=== PATIENT | female | born 1960 | race Caucasian/White ===

== ENCOUNTER → 2017-10-16 | Outpatient (CLI) | payer BC, OTHER ==
[~2017-10-16] MED LIST: ASPIR 8181 MG PO; BENTYL10 MG PO; CALCIUM600 MG PO; CITALOPRAM HBR40 MG PO; DELESTROGE10 MG/1 ML; DELESTROGEN; DEXILANT60 MG PO; FISH OIL; GABAPENTIN100 MG PO; GEMFIBROZIL600 MG PO; HUMALOG100 UNITS/ SC; HUMALOG100 UNITS/ SQ; INSULIN SQ; ISOSORBIDE MONO30 MG PO; LANTUS100 UNITS/ SQ; LEVEMIR100 UNIT/1 SC; LEVOXYL50 MCG PO; LOVENOX60 MG/0.6 SC; MAXIDE PO; METFORMIN HCL500 MG PO; METHOCARBAMOL750 MG PO; METOPROLOL SUCC50 MG PO; NABUMETONE500 MG PO; NIACIN; NOVOLOG SC; PLAVIX75 MG PO; PRAVASTATIN SOD40 MG PO; PROPAFENONE PO; TRAMADOL HCL E200 MG PO; TRAZODONE HCL100 MG PO; TRIAMTERENE-HCTZ1 EA PO; VERAPAMIL ER120 M1 PO
--- NOTE | 2017-10-16 11:16 | Diagnostic Imaging Report ---
PROCEDURE:X-RAY LEFT FOOT, COMPLETE COMPARISON:None. INDICATIONS:DIABETIC ULCER ON BOTTOM LATERAL PORTION FINDINGS: There are no fractures or dislocations. Erosive changes of the palmar aspect of the distal great toe, likely chronic without soft tissue defect or swelling. Calcaneal enthesophyte. Vascular calcifications. CONCLUSION: Erosive changes of the palmar aspect of the distal phalanx of the great toe, likely chronic without soft tissue defect or swelling. Recommend Foot MRI if there is high clinical concern for acute osteomyelitis. No fractures or dislocations. Dictated by: Julio César Marin M.D. on 10/16/2017 at 11:19 Electronically approved by: Julio César Marin M.D. on 10/16/2017 at 11:19
== END ==
LOC: RAD 10:25
PROVIDERS: ATTEND Family Medicine
DX: E11.621 Type 2 diabetes mellitus with foot ulcer (principal)

== ENCOUNTER → 2018-05-12 | Outpatient (CLI) | payer BC, OTHER ==
[2018-05-12 14:44] LABS: BODY FLUID APPEARANCE CLOUDY; BODY FLUID COLOR RED; BODY FLUID TYPE SYNOVIAL
[2018-05-12 14:45] LABS: RBC,BODY FLUID 46200 cells/uL; WBC,BODY FLUID 12320 cells/uL
[2018-05-12 14:48] LABS: LYMPHOCYTES,BODY FLUID 6 %; MONO/MACROPHG,BODY FLUID 10 %; NEUTROPHILS,BODY FLUID 84 %
== END ==
LOC: LAB 12:24
PROVIDERS: ATTEND Specialist
DX: M10.062 Idiopathic gout, left knee (principal)
CPT/HCPCS: 36415; 87070; 87071; 87075; 87102; 87116; 87205; 87206; 89051; 89060

== ENCOUNTER → 2018-05-25 | Outpatient (CLI) | payer BC, OTHER ==
--- NOTE | 2018-05-25 11:24 | Diagnostic Imaging Report ---
MRI BRAIN WO HISTORY: Vertebrobasilar syndrome COMPARISON: None. TECHNIQUE: Sagittal T2, axial T2, axial T1, axial T2/FLAIR, axial gradient echo (or susceptibility weighted), coronal T2/FLAIR, and axial diffusion weighted MR images of the brain were obtained without contrast. DISCUSSION: Scalp/bone marrow: Unremarkable. Brain sulci: Appropriate for patient's age. Ventricles: Normal in size and configuration. No hydrocephalus. Extra-axial spaces: No masses or fluid collections. Parenchyma: A few small T2/FLAIR hyperintense foci throughout the supratentorial white matter are likely chronic microvascular ischemic changes. Otherwise, no mass, hemorrhage, or acute vascular insults. Vessels: Normal flow voids in major arteries and veins. Sellar/Suprasellar region: No abnormalities. Craniocervical junction: No abnormalities. Incidental findings: Mild scattered paranasal sinus mucosal thickening is present. IMPRESSION: 1. No acute intracranial abnormalities. 2. Mild supratentorial chronic microvascular ischemic changes. Signed by: Dr. Robert Sutton M.D. on 05/25/2018 11:21 AM
--- NOTE | 2018-05-25 11:37 | Diagnostic Imaging Report ---
MRA NECK WO, MRA HEAD WO HISTORY: Vertebrobasilar artery syndrome COMPARISON: Concurrent MRI of the brain TECHNIQUE: Axial 2D cervical, and axial 3D intracranial djuz-hw-ckikzr MRA images were obtained without contrast. Maximum intensity projection and coronal/sagittal reformatted images were created. If present, any cervical carotid stenosis will be measured as a percentage relative to the [place] artery distal to the stenosis. Intracranial MRA source axial images and MIPS were reviewed on [employer] system. FINDINGS: CERVICAL MRA: Noise and alias artifacts obscure some details. Right Carotid: No flow abnormalities. Left Carotid: No flow abnormalities. Right vertebral artery: No flow abnormalities. Left vertebral artery: No flow abnormalities. INTRACRANIAL MRA: Carotid arteries: No flow abnormalities in the intracranial internal carotid arteries. Normal A1 and M1 segments. Vertebrobasilar Circulation: Right vertebral artery: No flow abnormalities. Left vertebral artery: No flow abnormalities. Basilar artery: No flow abnormalities. Posterior cerebral arteries: No flow abnormalities. Normal Variants: ACom: Visualized. PComs: Patent on the left. Not visualized on the right. Vertebral arteries: Right dominant. IMPRESSION: No cervical or intracranial MRA abnormalities. Signed by: Dr. Robert Sutton M.D. on 05/25/2018 11:34 AM
--- NOTE | 2018-05-25 11:37 | Diagnostic Imaging Report ---
MRA NECK WO, MRA HEAD WO HISTORY: Vertebrobasilar artery syndrome COMPARISON: Concurrent MRI of the brain TECHNIQUE: Axial 2D cervical, and axial 3D intracranial abjk-pt-bvqecr MRA images were obtained without contrast. Maximum intensity projection and coronal/sagittal reformatted images were created. If present, any cervical carotid stenosis will be measured as a percentage relative to the [place] artery distal to the stenosis. Intracranial MRA source axial images and MIPS were reviewed on [employer] system. FINDINGS: CERVICAL MRA: Noise and alias artifacts obscure some details. Right Carotid: No flow abnormalities. Left Carotid: No flow abnormalities. Right vertebral artery: No flow abnormalities. Left vertebral artery: No flow abnormalities. INTRACRANIAL MRA: Carotid arteries: No flow abnormalities in the intracranial internal carotid arteries. Normal A1 and M1 segments. Vertebrobasilar Circulation: Right vertebral artery: No flow abnormalities. Left vertebral artery: No flow abnormalities. Basilar artery: No flow abnormalities. Posterior cerebral arteries: No flow abnormalities. Normal Variants: ACom: Visualized. PComs: Patent on the left. Not visualized on the right. Vertebral arteries: Right dominant. IMPRESSION: No cervical or intracranial MRA abnormalities. Signed by: Dr. Robert Sutton M.D. on 05/25/2018 11:34 AM
== END ==
LOC: MRI 09:06
PROVIDERS: ATTEND Family Medicine
DX: G45.9 Transient cerebral ischemic attack, unspecified (principal); R47.01 Aphasia
CPT/HCPCS: 70544; 70547; 70551

== ENCOUNTER → 2018-07-08 | Outpatient (CLI) | payer BC, OTHER ==
--- NOTE | 2018-07-09 03:48 | Diagnostic Imaging Report ---
SP LUMBAR, COMPLETE MIN 4VW, COCCYX HISTORY: Fall, low back and coccyx pain. COMPARISON: None available. DISCUSSION: Some of the osseous structures are partially obscured by stool and bowel gas. There are five non-rib bearing lumbar vertebral bodies. The alignment of the spine is within normal limits. Angulated appearance of the coccyx. Otherwise, no displaced fracture or compression deformity is identified. Surgical clips in the right upper quadrant. Disc Spaces: Mild disc space narrowing at L5-S1. Facets: Mild facet arthrosis at L4-L5 and L5-S1. IMPRESSION: Angulated appearance of the coccyx. Of note, this is a site of anatomic variance and may be an variant or represent a fracture. Recommend correlation with focal point tenderness. Otherwise, no acute radiographic abnormality. Signed by: DR. Enrrique Myers MD on 07/09/2018 3:45 AM
== END ==
LOC: RAD 17:46
PROVIDERS: ATTEND Family Medicine
DX: S30.0XXA Contusion of lower back and pelvis, initial encounter (principal)
CPT/HCPCS: 72110; 72220

== ENCOUNTER → 2018-12-21 | Day surgery (SDC) | payer BC, OTHER ==
[2018-12-18 09:40] LABS: BASOPHILS # (AUTO) 0.1 (0.0-0.1); BASOPHILS % 0.6 % (0.0-1.0); EOSINOPHILS # (AUTO) 0.6 (0.0-0.4); EOSINOPHILS % 5.9 % (0.0-6.0); HEMATOCRIT 35.3 % (34.2-44.1); HEMOGLOBIN 11.3 g/dL (12.0-16.0); LYMPHOCYTES # (AUTO) 1.4 (1.0-3.2); LYMPHOCYTES % 15.4 % (18.0-39.1); MEAN CORPUSCULAR HEMOGLOBIN 27.8 pg (28-32); MEAN CORPUSCULAR VOLUME 86.9 fL (81-99); MONOCYTES # (AUTO) 0.5 (0.2-0.8); MONOCYTES % 5.4 % (4.4-11.3); NEUTROPHILS # (AUTO) 6.7 (2.1-6.9); NEUTROPHILS % 72.2 % (38.7-80.0); PLATELET COUNT 264 x10e3/uL (140-360); RED BLOOD COUNT 4.06 x10e6/uL (3.6-5.1); RED CELL DISTRIBUTION WIDTH 14.1 % (11.7-14.4)
[~2018-12-21] MED LIST changes: +ATORVASTATIN PO; +CITALOPRAM HBR20 MG PO; +HYOSCYAMINE 0.125 MG TAB ONE; +INSULIN REGULAR, HUMAN 100 UNIT/1 ML 3ML VIAL ONE; +ISOSORBIDE ER PO; +LIDOCAINE HCL 2% LOCAL INJ 5 ML SDV VIAL INJ ONE; +MIDAZOLAM HCL 2 MG/2 ML VIAL ONE; +NOVOLOG100 UNITS1 SC; +PENTASA500 MG PO; +PROPOFOL IV EMULSION 10 MG/ML 20 ML VIAL ONE; +PROPOFOL IV EMULSION 10 MG/ML 50 ML VIAL ONE; +PROTONIX PO
--- OUTSIDE RECORDS SUMMARY | 2018-12-21 09:55 | XMS REPORT ---
Author [facility] Organization [facility] Address Unknown Phone Unavailable Care Team Providers Care Supervisor [employer] Name Role Phone JAY HARRISON Unavailable Unavailable Problems This patient has no known problems. Allergies, Adverse Reactions, Alerts This patient has no known allergies or adverse reactions. Medications This patient has no known medications. Results Test Description Test Time Test Comments Text Results Atomic Results Result Comments COCCYX 2018-07-09 03:36:00 [facility] [address] [address] Patient Name: SUZETTE SANTIAGO MR #: [id number] : 1960 Age/Sex: 58/F Req #: [id number] [facility] Physician: Ordered by: JAY HARRISON MD Report #: [id number] Location: [facility] Room/Bed: Procedure: [id number] DX/COCCYX Exam Date: 07/08/18 Exam Time: 1806 REPORT STATUS: Signed SP LUMBAR, COMPLETE MIN 4VW, COCCYX HISTORY: Fall, low back and coccyx pain. COMPARISON: None available. DISCUSSION: Some of the osseous structures are partially obscured by stool and bowel gas. There are five non-rib bearing lumbar vertebral bodies. The alignment of the spine is within normal limits. Angulated appearance of the coccyx. Otherwise, no displaced fracture or compression deformity is identified. Surgical clips in the right upper quadrant. Disc Spaces: Mild disc space narrowing at L5- S1. Facets: Mild facet arthrosis at L4-L5 and L5-S1. IMPRESSION: Angulated appearance of the coccyx. Of note, this is a site of anatomic variance and may be an variant or represent a fracture. Recommend correlation with focal point tenderness. Otherwise, no acute radiographic abnormality. Signed by: DR. Enrrique Morgan MD on 07/09/2018 3:45 AM Dictated By: ENRRIQUE MORGAN MD 4 Transcribed By: HOA on 07/09/18344 COPY TO: JAY HARRISON MD SP LUMBAR, COMPLETE MIN 4VW 2018-07-09 03:36:00 [address] [place] [address] Patient Name: SUZETTE SANTIAGO MR #: [id number] : 1960 Age/Sex: 58/F Req #: [id number] Adm Physician: Ordered by: JAY HARRISON MD Report #: [id number] Location: [facility] Room/Bed: Procedure: [id number] DX/SP LUMBAR, COMPLETE MIN 4VW Exam Date: 07/08/18 Exam Time: 1806 REPORT STATUS: Signed SP LUMBAR, COMPLETE MIN 4VW, COCCYX HISTORY: Fall, low back and coccyx pain. COMPARISON: None available. DISCUSSION: Some of the osseous structures are partially obscured by stool and bowel gas. There are five non-rib bearing lumbar vertebral bodies. The alignment of the spine is within normal limits. Angulated appearance of the coccyx. Otherwise, no displaced fracture or compression deformity is identified. Surgical clips in the right upper quadrant. Disc Spaces: Mild disc space narrowing at L5-S1. Facets: Mild facet arthrosis at L4-L5 and L5-S1. IMPRESSION: Angulated appearance of the coccyx. Of note, this is a site of anatomic variance and may be an variant or represent a fracture. Recommend correlation with focal point tenderness. Otherwise, no acute radiographic abnormality. Signed by: DR. Enrrique Morgan MD on 07/09/2018 3:45 AM Dictated By: ENRRIQUE MORGAN MD 4 Transcribed By: HOA on 07/09/18344 COPY TO: JAY HARRISON MD MRA HEAD WO 2018-05-25 11:21:00 [place] [address] Patient Name: SUZETTE SANTIAGO MR #: [id number] : 1960 Age/Sex: 58/F Req #: [id number] Adm Physician: Ordered by: JAY HARRISON MD Report #: [id number] Location: MRI Room/Bed: Procedure: [id number] MRI/MRA HEAD WO Exam Date: Exam Time: REPORT STATUS: Signed MRA NECK WO, MRA HEAD WO HISTORY: Vertebrobasilar artery syndrome COMPARISON: Concurrent MRI of the brain TECHNIQUE: Axial 2D cervical, and axial 3D intracranial eofz-dt-etyfly MRA images were obtained without contrast. Maximum intensity projection and coronal/sagittal reformatted images were created. If present, any cervical carotid stenosis will be measured as a percentage relative to the [place] artery distal to the stenosis. Intracranial MRA source axial images and MIPS were reviewed on [employer] system. FINDINGS: CERVICAL MRA: Noise and alias artifacts obscure some details. Right Carotid: No flow abnormalities. Left Carotid: No flow abnormalities. Right vertebral artery: No flow abnormalities. Left vertebral artery: No flow abnormalities. INTRACRANIAL MRA: Carotid arteries: No flow abnormalities in the intracranial internal carotid arteries. Normal A1 and M1 segments. Vertebrobasilar Circulation: Right vertebral artery: No flow abnormalities. Left vertebral artery: No flow abnormalities. Basilar artery: No flow abnormalities. Posterior cerebral arteries: No flow abnormalities. Normal Variants: ACom: Visualized. PComs: Patent on the left. Not visualized on the right. Vertebral arteries: Right dominant. IMPRESSION: No cervical or intracranial MRA abnormalities. Signed by: Dr. Robert Sutton M.D. on 05/25/2018 11:34 AM Dictated By: ROBERT SUTTON MD 1134 Transcribed By: HOA on 05/25/18 1134 COPY TO: JAY HARRISON MD MRA NECK WO 2018-05-25 11:21:00 [place] [address] Patient Name: SUZETTE SANTIAGO MR #: [id number] : 1960 Age/Sex: 58/F Req #: [id number] Adm Physician: Ordered by: JAY HARRISON MD Report #: [id number] Location: MRI Room/Bed: Procedure: [id number] MRI/MRA NECK WO Exam Date: Exam Time: REPORT STATUS: Signed MRA NECK WO, MRA HEAD WO HISTORY: Vertebrobasilar artery syndrome COMPARISON: Concurrent MRI of the brain TECHNIQUE: Axial 2D cervical, and axial 3D intracranial emxf-tr-zwvqdy MRA images were obtained without contrast. Maximum intensity projection and coronal/sagittal reformatted images were created. If present, any cervical carotid stenosis will be measured as a percentage relative to the [place] artery distal to the stenosis. Intracranial MRA source axial images and MIPS were reviewed on [employer] system. FINDINGS: CERVICAL MRA: Noise and alias artifacts obscure some details. Right Carotid: No flow abnormalities. Left Carotid: No flow abnormalities. Right vertebral artery: No flow abnormalities. Left vertebral artery: No flow abnormalities. INTRACRANIAL MRA: Carotid arteries: No flow abnormalities in the intracranial internal carotid arteries. Normal A1 and M1 segments. Vertebrobasilar Circulation: Right vertebral artery: No flow abnormalities. Left vertebral artery: No flow abnormalities. Basilar artery: No flow abnormalities. Posterior cerebral arteries: No flow abnormalities. Normal Variants: ACom: Visualized. PComs: Patent on the left. Not visualized on the right. Vertebral arteries: Right dominant. IMPRESSION: No cervical or intracranial MRA abnormalities. Signed by: Dr. Robert Sutton M.D. on 05/25/2018 11:34 AM Dictated By: ROBERT SUTTON MD 1134 Transcribed By: HOA on 05/25/18 1134 COPY TO: JAY HARRISON MD MRI BRAIN WO 2018-05-25 11:17:00 [place] [address] Patient Name: SUZETTE SANTIAGO MR #: [id number] : 1960 Age/Sex: 58/F Req #: [id number] Adm Physician: Ordered by: JAY HARRISON MD Report #: [id number] Location: MRI Room/Bed: Procedure: [id number] MRI/MRI BRAIN WO Exam Date: Exam Time: REPORT STATUS: Signed MRI BRAIN WO HISTORY: Vertebrobasilar syndrome COMPARISON: None. TECHNIQUE: Sagittal T2, axial T2, axial T1, axial T2/FLAIR, axial gradient echo (or susceptibility weighted), coronal T2/FLAIR, and axial diffusion weighted MR images of the brain were obtained without contrast. DISCUSSION: Scalp/bone marrow: Unremarkable. Brain sulci: Appropriate for patient's age. Ventricles: Normal in size and configuration. No hydrocephalus. Extra-axial spaces: No masses or fluid collections. Parenchyma: A few small T2/FLAIR hyperintense foci throughout the supratentorial white matter are likely chronic microvascular ischemic changes. Otherwise, no mass, hemorrhage, or acute vascular insults. Vessels: Normal flow voids in major arteries and veins. Sellar/Suprasellar region: No abnormalities. Craniocervical junction: No abnormalities. Incidental findings: Mild scattered paranasal sinus mucosal thickening is present. IMPRESSION: 1. No acute intracranial abnormalities. 2. Mild supratentorial chronic microvascular ischemic changes. Signed by: Dr. Robert Sutton M.D. on 05/25/2018 11:21 AM Dictated By: ROBERT SUTTON MD 1121 Transcribed By: HOA on 05/25/18 1121 COPY TO: JAY HARRISON MD FOOT LEFT COMPLETE 2017-10-16 11:19:00 [place] [address] Patient Name: SUZETTE SANTIAGO MR #: [id number] : 1960 Age/Sex: 57/F Req #: [id number] Adm Physician: Ordered by: JAY HARRISON MD Report #: [id number] Location: [facility] Room/Bed: Procedure: [id number] DX/FOOT LEFT COMPLETE Exam Date: 10/16/17 Exam Time: 1030 REPORT STATUS: Signed PROCEDURE: X-RAY LEFT FOOT, COMPLETE COMPARISON: None. INDICATIONS: DIABETIC ULCER ON BOTTOM LATERAL PORTION FINDINGS: There are no fractures or dislocations. Erosive changes of the palmar aspect of the distal great toe, likely chronic without soft tissue defect or swelling. Calcaneal enthesophyte. Vascular calcifications. CONCLUSION: Erosive changes of the palmar aspect of the distal phalanx of the great toe, likely chronic without soft tissue defect or swelling. Recommend Foot MRI if there is high clinical concern for acute osteomyelitis. No fractures or dislocations. Dictated by: Julio César Morris M.D. on 10/16/2017 at 11:19 Electronically approved by: Julio César Morris M.D. on 10/16/2017 at 11:19 Dictated By: JULIO CÉSAR MORRIS MD 1119 Transcribed By: COREY on 10/16/17 1119 COPY TO: JAY HARRISON MD
[2018-12-21 15:15] VITALS: BP 120/49
--- NOTE | 2018-12-21 21:14 | Operative Report ---
DATE OF PROCEDURE: 12/21/2018 SURGEON: Aquilino Nath MD PROCEDURES: 1. Esophagogastroduodenoscopy with esophageal dilatation and biopsies. 2. Colonoscopy with polypectomy and biopsies. INDICATIONS FOR EGD: Dysphagia, nausea, and heartburn. INDICATIONS FOR COLONOSCOPY: Surveillance colonoscopy and personal history of colon polyps. MEDICATIONS: The patient was done under MAC, please see anesthesiologist's note. PROCEDURE IN DETAIL: With the patient in left lateral decubitus position, a flexible fiberoptic Olympus gastroscope was introduced into the esophagus under direct visualization without any difficulty. There was some patchy erythema noted in the distal esophagus. The scope was then advanced with ease into the stomach after dilating the esophagus to size 50-[place]. The mucosa overlying the antrum revealed some patchy intense erythema and moderate edema and biopsies were obtained and sent to stain for H pylori. Several minute hyperplastic appearing polyps were noted in the body of the stomach and somewhat partially excised with the cold biopsy forceps. The pylorus was of normal contour and shape, it was intubated with ease and the scope was advanced all the way to the second portion of the duodenum. Biopsies were obtained from the second portion and the duodenal bulb to rule out sprue. The scope was then withdrawn back into the stomach and retroflexed. Mucosa overlying the fundus appeared to be within normal limits. Two nodules were noted in the cardia and those were biopsied. The scope was then straightened out, it was subsequently withdrawn. The patient tolerated the procedure well. IMPRESSION: 1. Distal esophagitis. 2. Esophageal stricture at gastroesophageal junction dilated to size 50-[place]ms. 3. Nodules, cardia, biopsied. 4. Gastritis, biopsied, biopsies sent to stain for Helicobacter pylori. 5. Gastric polyps, body, some partially excised with the cold biopsy forceps. 6. Rule out sprue. PLAN: Follow up histology. Continue Protonix 40 mg one p.o. a.c. b.i.d. and add Carafate 2 g p.o. a.c. b.i.d. The patient was then turned around and after adequate lubrication of the anal canal, a flexible fiberoptic Olympus colonoscope was inserted into the rectum with ease and advanced all the way to the cecum. Mucosa overlying the cecum appeared to be within normal limits. The ileocecal valve was intubated and the scope was advanced into the terminal ileum. Biopsies were obtained. The scope was then withdrawn back into the colon. It was then withdrawn slowly. Mucosa overlying the ascending and transverse colon appeared to be within normal limits. Some diverticular disease was noted in the distal descending and the sigmoid colon. Two polyps were snared from the sigmoid colon. One polypectomy site was hemoclipped x2. The rectum appeared to be within normal limits. The scope was then retroflexed into the distal rectum and small internal hemorrhoids were noted, none of which was actively bleeding. The scope was then straightened out, it was subsequently withdrawn. The patient tolerated the procedure well. IMPRESSION: 1. Diverticulosis. 2. Sigmoid colon polyps x2, snared and one site hemoclipped x2. 3. Internal hemorrhoids, none actively bleeding. PLAN: Followup histology. Initiate Bentyl 20 mg one p.o. t.i.d. Aquilino Nath MD [facility] [place] /[id number] cc: Silverio Jenkins MD
== END | disposition home or self-care (01) ==
LOC: OR 09:45
PROVIDERS: ATTEND Internal Medicine Gastroenterology
DX: K29.50 Unspecified chronic gastritis without bleeding (principal); D12.5 Benign neoplasm of sigmoid colon; K31.7 Polyp of stomach and duodenum; K22.2 Esophageal obstruction; K29.60 Other gastritis without bleeding; K52.9 Noninfective gastroenteritis and colitis, unspecified; K20.8 Other esophagitis; K21.9 Gastro-esophageal reflux disease without esophagitis; K22.8 Other specified diseases of esophagus; K57.30 Diverticulosis of large intestine without perforation or abscess without bleeding; K64.8 Other hemorrhoids; J45.909 Unspecified asthma, uncomplicated; I25.10 Atherosclerotic heart disease of native coronary artery without angina pectoris; I10 Essential (primary) hypertension; I25.2 Old myocardial infarction; M06.9 Rheumatoid arthritis, unspecified; E11.9 Type 2 diabetes mellitus without complications; E03.9 Hypothyroidism, unspecified; D64.9 Anemia, unspecified; I49.9 Cardiac arrhythmia, unspecified; F32.9 Major depressive disorder, single episode, unspecified; Z88.6 Allergy status to analgesic agent; Z88.0 Allergy status to penicillin; Z01.810 Encounter for preprocedural cardiovascular examination; Z79.02 Long term (current) use of antithrombotics/antiplatelets; Z79.82 Long term (current) use of aspirin; Z79.4 Long term (current) use of insulin; Z01.812 Encounter for preprocedural laboratory examination; Z68.35 Body mass index [BMI] 35.0-35.9, adult; Z86.73 Personal history of transient ischemic attack (TIA), and cerebral infarction without residual deficits
CPT/HCPCS: 36415 ×2; 43239; 43450; 45385; 82948; 85025; 93005; J2001; J2250; J2704 ×2; 45378; 45380; J1817

== ENCOUNTER 2021-09-29 11:16 | Emergency (ER) | payer BC, OTHER ==
[~2021-09-29] VITALS: Ht 162.6 cm; Wt 97.1 kg
[~2021-09-29 11:16] MED LIST changes: -HYOSCYAMINE 0.125 MG TAB ONE; -INSULIN REGULAR, HUMAN 100 UNIT/1 ML 3ML VIAL ONE; -LIDOCAINE HCL 2% LOCAL INJ 5 ML SDV VIAL INJ ONE; -MIDAZOLAM HCL 2 MG/2 ML VIAL ONE; -PROPOFOL IV EMULSION 10 MG/ML 20 ML VIAL ONE; -PROPOFOL IV EMULSION 10 MG/ML 50 ML VIAL ONE
[2021-09-29] MEDS ORDERED: CLEOCIN HCL300 MG PO (13:30)
== END 2021-09-29 14:29 | disposition home or self-care (01) ==
LOC: ER 11:20
DX: L03.012 Cellulitis of left finger (principal); E11.9 Type 2 diabetes mellitus without complications; I48.91 Unspecified atrial fibrillation; M06.9 Rheumatoid arthritis, unspecified; I10 Essential (primary) hypertension; E78.00 Pure hypercholesterolemia, unspecified; E78.5 Hyperlipidemia, unspecified; Z88.6 Allergy status to analgesic agent; Z88.4 Allergy status to anesthetic agent; Z88.8 Allergy status to other drugs, medicaments and biological substances; Z79.4 Long term (current) use of insulin; Z79.02 Long term (current) use of antithrombotics/antiplatelets; Z79.899 Other long term (current) drug therapy; Z86.73 Personal history of transient ischemic attack (TIA), and cerebral infarction without residual deficits
CPT/HCPCS: 99283

== ENCOUNTER 2021-10-17 17:20 | Emergency (ER) | payer BC, OTHER ==
[~2021-10-17] VITALS: Ht 162.6 cm; Wt 97.1 kg
[~2021-10-17 17:20] MED LIST changes: +CLEOCIN HCL300 MG PO
[2021-10-17] MEDS ORDERED: IBUPROFEN600 MG PO (17:32)
[2021-10-17] MEDS ORDERED: CLEOCIN HCL300 MG PO (17:32)
== END 2021-10-17 18:00 | disposition home or self-care (01) ==
LOC: ER 17:20
DX: M77.8 Other enthesopathies, not elsewhere classified (principal); M06.9 Rheumatoid arthritis, unspecified; E11.9 Type 2 diabetes mellitus without complications; I48.91 Unspecified atrial fibrillation; E78.00 Pure hypercholesterolemia, unspecified; E78.1 Pure hyperglyceridemia; Z88.6 Allergy status to analgesic agent; Z88.8 Allergy status to other drugs, medicaments and biological substances; Z79.4 Long term (current) use of insulin; Z79.02 Long term (current) use of antithrombotics/antiplatelets; Z79.899 Other long term (current) drug therapy; Z86.73 Personal history of transient ischemic attack (TIA), and cerebral infarction without residual deficits
CPT/HCPCS: 99282